=== PATIENT | female | born 1935 | race Caucasian/White ===

== ENCOUNTER 2017-11-13 06:59 | Day surgery (SDC) | payer OTHER ==
[2017-11-13] MEDS ORDERED: BUPIVACAINE 0.25% PF 10 ML VIAL ONE (07:10)
[2017-11-13] MEDS ORDERED: NA CHLORIDE 0.9% 500 ML ONE (07:10)
[2017-11-13] MEDS ORDERED: LIDOCAINE 2% MPF 5 ML VIAL ONE (07:10)
[2017-11-13] MEDS ORDERED: TETRACAINE HCL 0.5% 2ML OPTH ONE (07:10)
[2017-11-13] MEDS: PHENYLEPHRINE 10% OPTH 5ML ONE ×3 (07:30→07:40)
[2017-11-13] MEDS: CYCLOPENTOLATE 1% OPTH 2 ML ONE ×3 (07:30→07:40)
[2017-11-13] MEDS ORDERED: MIDAZOLAM HCL 2 MG/2 ML INJ ONE (07:55)
[2017-11-13] MEDS ORDERED: FENTANYL CITR 100 MCG/2 ML ONE (07:55)
[2017-11-13] MEDS: LIDOCAINE HCL/PF 3.5% OPTH GEL ONE ×2 (08:03→08:26)
[2017-11-13] MEDS ORDERED: BALANCED SALT IRRIG PLAIN 500 ML BTL IRR ONE (08:11)
[2017-11-13] MEDS ORDERED: NS 0.9% VIAL 10 ML ONE (08:11)
[2017-11-13] MEDS ORDERED: EPINEPHRINE/PF 1 MG/ML AMP ONE (08:11)
[2017-11-13] MEDS ORDERED: DUOVISC 1 KIT OPTH ONE (08:12)
[2017-11-13] MEDS ORDERED: BSS OPTHALMIC SOL 15 ML BOT OPTH ONE (08:13)
[2017-11-13] MEDS ORDERED: LIDOCAINE 1% MPF 2 ML AMPULE ONE (08:13)
[2017-11-13] MEDS ORDERED: MOXIFLOXACIN HCL 10 DROPS/ML **OR USE OPTH ONE (08:14)
[2017-11-13] MEDS ORDERED: ONDANSETRON 4 MG/2 ML VIAL ONE (08:57)
--- NOTE | 2017-11-13 09:07 | P.BOP ---
Preoperative diagnosis: Nuclear sclerotic cataract OD Postoperative diagnosis: Same Primary procedure: Phacoemulsification with IOL OD Estimated blood loss: None Anesthesia: Local (Topical with anesthesia for cataract surgery) Complications: None Implants: ZCB00 +21.0 Transferred to: Other (Day surgery) Condition: Good
--- NOTE | 2017-11-13 20:58 | OP ---
Date of Procedure: 11/13/2017 Surgeon: Elmira Murphy MD Anesthesiologist: 1. Deon Mancilla CRNA. 2. Ugo Campbell M.D. Preoperative Diagnosis: Nuclear sclerotic cataract, OS (left eye). Operation Performed: Phacoemulsification with intraocular lens implant, OS (left eye). Anesthesia: Per cataract surgery. Description Of Procedure: In the operating room the patient was prepped and draped in the usual ster ile fashion for ophthalmic surgery. A lid speculum was placed in the OS. Two paracentesis sites wer e made superiorly and inferiorly in the limbal cornea. Viscoat was placed in the anterior chamber an d a crescent blade was used to make a corneal groove and tunnel, and a keratome was used to enter the anterior chamber. Provisc was placed in the anterior chamber and a 360 degree capsulotomy was perfo rmed with a cystitome. The lens was hydrodissected with BSS and rotated freely. The lens was remove d with a stop and chop technique. A 14.58 phaco CDE was used to remove the lens. Residual cortex wa s removed with the irrigation and aspiration. Provisc was placed in the capsular bag. A ZCB00 +21.0 diopter lens was placed in the capsular bag without complications. Irrigation and aspiration was us ed to remove residual viscoelastic. The paracentesis sites were hydrated with BSS. The wound and pa racentesis sites were inspected and found to be watertight. Vigamox 0.07 cc was placed intracamerall y at the end of the procedure. The eye was irrigated with balanced salt solution. The eye was patch ed with a soft cotton patch and [place] metal shield. The patient was returned to day surgery in good condition. Comments: Akten was placed in the eye in Day surgery and irrigated out of the eye with BSS in the OR . Preservative free 1% lidocaine was placed in the anterior chamber prior to Viscoat. Discharge Instructions: Ms. Akers is discharged to home in good condition and is to follow up jayna Murphy in the morning. SUMAN/MODL Voice ID: [id number] Report ID: [id number]
== END 2017-11-13 09:42 | disposition home or self-care (01) ==
LOC: OR 06:59
PROVIDERS: ATTEND Ophthalmology Retina Specialist
PROC: 08RK3JZ Replacement of Left Lens with Synthetic Substitute, Percutaneous Approach (ICD-10-PCS; principal; 2017-11-13 08:30)
DX: H25.12 Age-related nuclear cataract, left eye (principal); H43.813 Vitreous degeneration, bilateral; H35.3130 Nonexudative age-related macular degeneration, bilateral, stage unspecified; H04.123 Dry eye syndrome of bilateral lacrimal glands; E78.00 Pure hypercholesterolemia, unspecified; M19.90 Unspecified osteoarthritis, unspecified site; Z85.828 Personal history of other malignant neoplasm of skin; F32.9 Major depressive disorder, single episode, unspecified; Z79.82 Long term (current) use of aspirin; Z82.49 Family history of ischemic heart disease and other diseases of the circulatory system; Z83.511 Family history of glaucoma; Z80.9 Family history of malignant neoplasm, unspecified
CPT/HCPCS: 66984; J0171; J2001; J2250; J2405; J3010